=== PATIENT | female | born 1955 | race Caucasian/White ===

== ENCOUNTER 2025-04-13 14:32 | Emergency (ER) | payer OTHER, MEDICARE ==
[2025-04-13 15:18] LABS: BASOPHILS PERCENT AUTO 0.8 % (0.0-1.0); EOSINOPHILS PERCENT AUTO 2.0 % (1.0-3.0); LYMPHOCYTES PERCENT AUTO 29.9 % (20.5-50.1); MONOCYTES PERCENT AUTO 11.3 % (2-8); NEUTROPHILS PERCENT AUTO 56.0 % (42.2-75.2); PLATELET COUNT,PLT 488 10^3/uL (150-450); RED BLOOD CELL COUNT 3.42 10^6/uL (4.2-5.4); WHITE BLOOD CELL COUNT,WBC 6.5 10^3/uL (5.0-10.0)
[2025-04-13] MEDS: Take Home: Doxycycline 100 MG Cap, 4 Cap Pack PO ONE (15:48)
[2025-04-13] MEDS: Take Home: Amoxicillin/Clavulanate K 875-125 MG Tab, 6 Tab Pack PO ONE (15:50)
[2025-04-13 15:53] LABS: INR 1.0 (0.9-1.2); PTT,PARTIAL THROMBOPLSTIN TIME 26.5 SEC (22.0-34.0)
[2025-04-13] MEDS ORDERED: Sodium Chloride 0.9% 10 ML Syringe FLUSH PRN (15:55)
[2025-04-13 16:59] LABS: A/G RATIO 0.77; ALANINE AMINOTRANSFERASE,ALT 12.0 U/L (14-59); ASPARTATE AMNIOTRANSFERASE,AST 12.0 U/L (15-37); BILIRUBIN TOTAL 0.2 mg/dL (0.2-1.0); BLOOD UREA NITROGEN,BUN 14.0 mg/dL (7-18); CARBON DIOXIDE,CO2 28.0 mmol/L (21-32); CHLORIDE,CL 102.0 mmol/L (98-107); CREATININE 0.81 mg/dL (0.55-1.02); EST CRCL DRUG DOSING (CG) 52.57 mL/min; ESTIMATED GFR 79.0 mL/min (>=60); GLUCOSE RANDOM 92.0 mg/dL (70-99); POTASSIUM,K 4.9 mmol/L (3.5-5.1); PROTEIN TOTAL,TP 7.6 g/dL (6.4-8.2); SODIUM,NA 139.0 mmol/L (136-145)
[2025-04-13] MEDS: Iopamidol 755 Mg/ML 100 ML Bottle IVPUSH ONE (17:00)
[2025-04-13] MEDS: diphenhydrAMINE 50 MG/ML SDV IVPUSH ONE (17:04)
[2025-04-13] MEDS: Ondansetron 4 MG/2 ML SDV IVPUSH ONE (17:04)
[2025-04-13] MEDS: Iopamidol 612 MG/ML 100 ML Bottle IVPUSH ONE (17:28)
== END 2025-04-13 19:27 | disposition home or self-care (01) ==
LOC: DL.ED 14:32
DX: R04.0 Epistaxis (principal); J18.9 Pneumonia, unspecified organism; Z86.711 Personal history of pulmonary embolism
CPT/HCPCS: 36415; 71045; 71275; 80053; 85025; 85610; 85730; 96374; 96375; 99284; A9270; J1200; J2405; Q9967